=== PATIENT | male | born 1990 | race Caucasian/White ===

== ENCOUNTER → 2016-11-06 | Outpatient (CLI) | payer OTHER ==
[~2016-11-06] MED LIST: GENTAMICIN SU3 MG/ML OPHTHALMIC; IBUPROFEN 800800 M1 PO; NOHOMEMEDICATIONS; NORCO 5-325 TA1 EACH PO; TRAMADOL 50 MG50 MG PO
== END ==
LOC: CAT 10:41
DX: S99.822A Other specified injuries of left foot, initial encounter (principal)